=== PATIENT | male | born 1970 | race Two or more races ===

== ENCOUNTER 2023-08-23 08:53 | Inpatient (IN) | payer MEDICAID, OTHER ==
[~2023-08-23] VITALS: Ht 188 cm; Wt 92.8 kg
[2023-08-23] MEDS ORDERED: SODIUM CHLORIDE 0.9% 1,000 ML IV ONE (10:15)
[2023-08-23] MEDS ORDERED: MORPHINE SULFATE 4 MG/ML SYR/VIAL IV ONE (10:15)
[2023-08-23] MEDS ORDERED: methylPREDNISolone SOD SUCC 125 MG/2 ML VL IV ONE (10:15)
[2023-08-23 10:45] LABS: Basophils # (auto) 0 10 ^3/uL (0-0.2); Eosinophils # (auto) 0 10 ^3/uL (0-0.8); Monocytes # (auto) 0.5 10 ^3/uL (0-1.3); White Blood Cell 3.6 10^3/uL (4.4-10.8)
[2023-08-23 10:47] LABS: Basophils % (auto) 0.7 % (0.0-2.0); Eosinophils % (auto) 1.2 % (0.0-7.0); Hematocrit 38.3 % (41.0-53.0); Hemoglobin 12.4 g/dL (13.5-17.5); Lymphocytes % (auto) 28.5 % (10.0-50.0); Mean Corpuscular Hgb Conc. 32.3 g/dL (32.0-36.0); Mean Corpuscular Volume 80.7 fL (80.0-100.0); Monocytes % (auto) 14.3 % (0.0-12.0); Neutrophils % (auto) 55.3 % (37.0-80.0); Nucleated Red Blood Cells % 0.2 %; Red Blood Cells 4.75 10^6/uL (4.5-5.90); Red Cell Distribution Width 17.7 % (11.8-14.3)
[2023-08-23 11:03] LABS: Chloride 104 mmol/L (98-107); Sodium 138 mmol/L (136-145)
[2023-08-23 11:04] LABS: Anion Gap 9 (5-15); Carbon Dioxide 25 mmol/L (20-30)
[2023-08-23 11:09] LABS: BUN/Creatinine Ratio 17.1 (10.0-20.0); Blood Urea Nitrogen 18 mg/dL (9-23); Glucose 89 mg/dL (74-106)
[2023-08-23 12:46] LABS: Lipase 40 U/L (12-53)
[2023-08-23] MEDS ORDERED: ENOXAPARIN SOD 40 MG/0.4 ML SYRINGE SC SCH (13:00)
[2023-08-23] MEDS ORDERED: DOCUSATE SOD 100 MG CAP PO PRN (13:00)
[2023-08-23] MEDS: GABAPENTIN 300 MG CAP PO SCH ×2 (14:06→23:00)
[2023-08-23] MEDS: SODIUM CHLORIDE 0.9% 1,000 ML IV SCH ×2 (14:08→22:54)
[2023-08-23 14:32] LABS: Urine Epithelial Cast None Seen /hpf (<5)
[2023-08-23 15:16] LABS: Urine Bacteria NONE SEEN /hpf (None Seen); Urine Blood Negative /uL (Negative); Urine Clarity Clear (Clear); Urine Color Colorless (Yellow); Urine Protein, UAD Negative (Negative); Urine Specific Gravity 1.008 (1.001-1.035); Urine Urobilinogen Normal (Negative); Urine WBC <1 /hpf (0 - 3)
[2023-08-23 15:30] VITALS: PULSE 96; RESP 18; O2SAT 97
[2023-08-23] MEDS: ALBUTEROL SULF 2.5 MG/0.5ML(0.5%) NEB SOLN NEB PRN (15:30)
[2023-08-23] MEDS: IPRATROPIUM BROM 0.5 MG/2.5ML INH SOL NEB PRN (15:30)
[2023-08-23 15:36] VITALS: PULSE 92; RESP 18; O2SAT 97
[2023-08-23 17:08] VITALS: BP 144/72; PULSE 89; RESP 18; O2SAT 99
[2023-08-23 19:42] VITALS: O2SAT 96
[2023-08-23] MEDS: MORPHINE SULFATE INJ 2 MG/ml SYRG IV PRN (20:10)
[2023-08-23] MEDS: ONDANSETRON HCL 4 MG/2 ML VIAL IV PRN (20:11)
[2023-08-23] MEDS ORDERED: methylPREDNISolone SOD SUCC 125 MG/2 ML VL ONE ×2 (20:46→20:53)
[2023-08-24] VITALS (9 sets, daily range): BP systolic 118–137; BP diastolic 71–79; PULSE 74–80; RESP 16–20; TEMP 97.9–98.1; O2SAT 93–99
[2023-08-24] MEDS: MORPHINE SULFATE INJ 2 MG/ml SYRG IV PRN ×4 (00:27→14:21)
[2023-08-24] MEDS: ONDANSETRON HCL 4 MG/2 ML VIAL IV PRN (00:27)
[2023-08-24] MEDS ORDERED: methylPREDNISolone SOD SUCC 1,000 MG in SODIUM CHLORIDE 0.9% 250 ML IV ONE (00:30)
[2023-08-24] MEDS: ALBUTEROL SULF 2.5 MG/0.5ML(0.5%) NEB SOLN NEB PRN (04:24)
[2023-08-24] MEDS: IPRATROPIUM BROM 0.5 MG/2.5ML INH SOL NEB PRN (04:24)
[2023-08-24] MEDS ORDERED: MELA10CA PO (06:37)
[2023-08-24] MEDS: GABAPENTIN 300 MG CAP PO SCH ×3 (06:44→21:02)
[2023-08-24] MEDS: SODIUM CHLORIDE 0.9% 1,000 ML IV SCH ×3 (06:45→22:20)
[2023-08-24 07:50] LABS: Basophils # (auto) 0 10 ^3/uL (0-0.2); Eosinophils # (auto) 0 10 ^3/uL (0-0.8); Eosinophils % (auto) 0.1 % (0.0-7.0); Hemoglobin 10.5 g/dL (13.5-17.5); Lymphocytes # (auto) 0.5 10 ^3/uL (0.4-5.4); Nucleated Red Blood Cells % 0.1 %
[2023-08-24 07:53] LABS: Basophils % (auto) 0.4 % (0.0-2.0); Hematocrit 32.4 % (41.0-53.0); Lymphocytes % (auto) 18.7 % (10.0-50.0); Mean Corpuscular Hemoglobin 26.2 pg (28.0-32.0); Mean Corpuscular Hgb Conc. 32.4 g/dL (32.0-36.0); Monocytes # (auto) 0.1 10 ^3/uL (0-1.3); Monocytes % (auto) 5.5 % (0.0-12.0); Neutrophils % (auto) 75.3 % (37.0-80.0); Red Cell Distribution Width 17.8 % (11.8-14.3); White Blood Cell 2.6 10^3/uL (4.4-10.8)
[2023-08-24 08:43] LABS: Alanine Aminotransferase 83 U/L (7-40); Albumin 3.4 g/dL (3.2-4.8); Aspartate Aminotransferase 86 U/L (13-40); Total Protein 7.3 g/dL (5.7-8.2)
[2023-08-24 08:44] LABS: Chloride 109 mmol/L (98-107); Potassium 4.2 mmol/L (3.5-5.1); Sodium 138 mmol/L (136-145)
[2023-08-24 08:47] LABS: Anion Gap 10 (5-15); Calcium 8.4 mg/dL (8.7-10.4); Carbon Dioxide 19 mmol/L (20-30)
[2023-08-24 08:52] LABS: BUN/Creatinine Ratio 18.1 (10.0-20.0); Blood Urea Nitrogen 19 mg/dL (9-23); Glucose 156 mg/dL (74-106)
[2023-08-24 08:53] LABS: Alkaline Phosphatase 156 U/L (46-116)
[2023-08-24 08:55] LABS: Bilirubin, Total 0.6 mg/dL (0.2-1.0)
[2023-08-24] MEDS ORDERED: FURO1TAB31 PO (09:43)
[2023-08-24] MEDS ORDERED: GABA-339 PO (09:43)
[2023-08-24] MEDS ORDERED: METH-1182 PO (09:43)
[2023-08-24] MEDS ORDERED: RISP3TAB44 PO (09:43)
[2023-08-24] MEDS: FUROSEMIDE 40 MG TAB PO SCH (09:50)
[2023-08-24] MEDS: PANTOPRAZOLE 40 MG/10 ML VIAL INJ IV SCH (09:50)
[2023-08-24] MEDS: METHOCARBAMOL 500 MG TAB PO PRN (13:06)
[2023-08-24] MEDS: methylPREDNISolone SOD SUCC 1,000 MG in SODIUM CHL 0.9% 250 ML IV SCH (16:19)
[2023-08-24] MEDS: HYDROmorphone HCL 2 MG/ML VL/or syr IV PRN ×2 (16:51→21:04)
[2023-08-24] MEDS: risperiDONE 1 MG TAB PO SCH (21:03)
[2023-08-24] MEDS ORDERED: LORazepam 2MG/ML-1ML VIAL IV PRN (22:45)
[2023-08-25] VITALS (8 sets, daily range): BP systolic 106–119; BP diastolic 60–68; PULSE 63–77; RESP 16–20; TEMP 97.5–98.3; O2SAT 95–98
[2023-08-25] MEDS: HYDROmorphone HCL 2 MG/ML VL/or syr IV PRN ×6 (01:26→20:27)
[2023-08-25] MEDS: GABAPENTIN 300 MG CAP PO SCH ×3 (04:33→21:24)
[2023-08-25] MEDS: SODIUM CHLORIDE 0.9% 1,000 ML IV SCH ×3 (06:40→23:20)
[2023-08-25] MEDS: FUROSEMIDE 40 MG TAB PO SCH (08:41)
[2023-08-25] MEDS: methylPREDNISolone SOD SUCC 1,000 MG in SODIUM CHL 0.9% 250 ML IV SCH (08:41)
[2023-08-25] MEDS: PANTOPRAZOLE 40 MG/10 ML VIAL INJ IV SCH (08:42)
[2023-08-25] MEDS ORDERED: GADOTERATE MEG 10 MMOL/20ml INJ (0.5MMOL/ml) IV ONE (11:24)
[2023-08-25] MEDS: risperiDONE 1 MG TAB PO SCH (21:24)
[2023-08-25] MEDS: MELATONIN 5 MG TAB PO SCH (21:25)
[2023-08-26] VITALS (10 sets, daily range): BP systolic 110–127; BP diastolic 61–78; PULSE 58–76; RESP 16–20; TEMP 97.5–98.8; O2SAT 94–98
[2023-08-26] MEDS: HYDROmorphone HCL 2 MG/ML VL/or syr IV PRN ×6 (02:39→23:43)
[2023-08-26] MEDS: GABAPENTIN 300 MG CAP PO SCH ×3 (06:48→21:43)
[2023-08-26] MEDS: PANTOPRAZOLE 40 MG/10 ML VIAL INJ IV SCH (11:32)
[2023-08-26] MEDS: FUROSEMIDE 40 MG TAB PO SCH (11:33)
[2023-08-26] MEDS: SODIUM CHLORIDE 0.9% 1,000 ML IV SCH ×3 (11:33→23:45)
[2023-08-26] MEDS: methylPREDNISolone SOD SUCC 1,000 MG in SODIUM CHL 0.9% 250 ML IV SCH (11:33)
[2023-08-26] MEDS: risperiDONE 1 MG TAB PO SCH (21:43)
[2023-08-26] MEDS: MELATONIN 5 MG TAB PO SCH (21:43)
[2023-08-27] VITALS (16 sets, daily range): BP systolic 123–158; BP diastolic 70–84; PULSE 61–85; RESP 16–20; TEMP 97–97.8; O2SAT 93–100
[2023-08-27] MEDS: HYDROmorphone HCL 2 MG/ML VL/or syr IV PRN ×6 (02:32→23:48)
[2023-08-27] MEDS: GABAPENTIN 300 MG CAP PO SCH ×3 (05:40→21:46)
[2023-08-27] MEDS: SODIUM CHLORIDE 0.9% 1,000 ML IV SCH ×2 (08:45→17:00)
[2023-08-27] MEDS: PANTOPRAZOLE 40 MG/10 ML VIAL INJ IV SCH (08:45)
[2023-08-27] MEDS: FUROSEMIDE 40 MG TAB PO SCH (08:45)
[2023-08-27] MEDS: methylPREDNISolone SOD SUCC 1,000 MG in SODIUM CHL 0.9% 250 ML IV SCH (09:35)
[2023-08-27] MEDS ORDERED: LORazepam 2MG/ML-1ML VIAL ONE ×3 (11:48→11:54)
[2023-08-27] MEDS ORDERED: LORazepam 2MG/ML-1ML VIAL IV ONE ×2 (12:00)
[2023-08-27] MEDS: risperiDONE 1 MG TAB PO SCH (21:45)
[2023-08-27] MEDS: MELATONIN 5 MG TAB PO SCH (21:46)
[2023-08-27] MEDS: METHOCARBAMOL 500 MG TAB PO PRN (21:51)
[2023-08-28] VITALS (11 sets, daily range): BP systolic 122–138; BP diastolic 66–76; PULSE 74–92; RESP 17–19; TEMP 97.8–98.5; O2SAT 91–99
[2023-08-28] MEDS: HYDROmorphone HCL 2 MG/ML VL/or syr IV PRN ×3 (03:18→11:04)
[2023-08-28] MEDS: SODIUM CHLORIDE 0.9% 1,000 ML IV SCH ×3 (03:26→17:56)
[2023-08-28] MEDS: GABAPENTIN 300 MG CAP PO SCH ×3 (06:07→22:00)
[2023-08-28] MEDS: METHOCARBAMOL 500 MG TAB PO PRN (06:11)
[2023-08-28] MEDS: FUROSEMIDE 40 MG TAB PO SCH (10:41)
[2023-08-28] MEDS: PANTOPRAZOLE 40 MG/10 ML VIAL INJ IV SCH (10:56)
[2023-08-28] MEDS: methylPREDNISolone SOD SUCC 1,000 MG in SODIUM CHL 0.9% 250 ML IV SCH (10:57)
[2023-08-28] MEDS ORDERED: methylPREDNISolone SOD SUCC 1,000 MG in SODIUM CHL 0.9% 250 ML IV ONE (13:00)
[2023-08-28] MEDS ORDERED: ACETAMINOPHEN 325 MG TAB PO PRN ×2 (17:15→17:30)
[2023-08-28] MEDS ORDERED: HYDROcodone-ACET 10/325MG TAB PO PRN (17:30)
[2023-08-28] MEDS: HYDROcodone-ACET 5/325MG TAB PO PRN ×2 (17:35→22:00)
[2023-08-28] MEDS: ACETAMINOPHEN 325 MG TAB PO PRN (17:36)
[2023-08-28] MEDS: risperiDONE 1 MG TAB PO SCH (22:02)
[2023-08-28] MEDS: MELATONIN 5 MG TAB PO SCH (22:02)
[2023-08-29] VITALS (8 sets, daily range): BP systolic 101–131; BP diastolic 62–75; PULSE 61–98; RESP 17–19; TEMP 97.4–98.3; O2SAT 90–96
[2023-08-29] MEDS: SODIUM CHLORIDE 0.9% 1,000 ML IV SCH ×3 (02:20→19:00)
[2023-08-29] MEDS: GABAPENTIN 300 MG CAP PO SCH ×3 (05:37→22:09)
[2023-08-29] MEDS: HYDROcodone-ACET 5/325MG TAB PO PRN ×2 (05:37→12:26)
[2023-08-29] MEDS: PANTOPRAZOLE 40 MG/10 ML VIAL INJ IV SCH (10:41)
[2023-08-29] MEDS: levETIRAcetam 500 MG TAB PO SCH ×2 (10:44→22:10)
[2023-08-29] MEDS: ACETAMINOPHEN 325 MG TAB PO PRN (10:44)
[2023-08-29] MEDS: FUROSEMIDE 40 MG TAB PO SCH (10:51)
[2023-08-29 11:11] LABS: Basophils # (auto) 0 10 ^3/uL (0-0.2); Eosinophils # (auto) 0 10 ^3/uL (0-0.8); Eosinophils % (auto) 0.1 % (0.0-7.0); Hemoglobin 11.4 g/dL (13.5-17.5); Lymphocytes # (auto) 0.7 10 ^3/uL (0.4-5.4); Monocytes # (auto) 0.3 10 ^3/uL (0-1.3); Neutrophils # (auto) 2.4 10 ^3/uL (1.6-8.6); White Blood Cell 3.3 10^3/uL (4.4-10.8)
[2023-08-29 11:13] LABS: Basophils % (auto) 0.4 % (0.0-2.0); Hematocrit 35.1 % (41.0-53.0); Mean Corpuscular Hemoglobin 25.9 pg (28.0-32.0); Mean Corpuscular Hgb Conc. 32.5 g/dL (32.0-36.0); Mean Corpuscular Volume 79.6 fL (80.0-100.0); Monocytes % (auto) 7.6 % (0.0-12.0); Neutrophils % (auto) 71.9 % (37.0-80.0); Nucleated Red Blood Cells % 0.2 %; Red Blood Cells 4.41 10^6/uL (4.5-5.90); Red Cell Distribution Width 17.4 % (11.8-14.3)
[2023-08-29 11:31] LABS: Alanine Aminotransferase 129 U/L (7-40); Albumin 2.9 g/dL (3.2-4.8); Alkaline Phosphatase 133 U/L (46-116); Anion Gap 6 (5-15); Aspartate Aminotransferase 67 U/L (13-40); BUN/Creatinine Ratio 20.9 (10.0-20.0); Blood Urea Nitrogen 18 mg/dL (9-23); Calcium 7.8 mg/dL (8.7-10.4); Carbon Dioxide 26 mmol/L (20-30); Chloride 107 mmol/L (98-107); Glucose 130 mg/dL (74-106); Magnesium 2.1 mg/dL (1.6-2.6); Potassium 3.7 mmol/L (3.5-5.1); Sodium 139 mmol/L (136-145)
[2023-08-29 11:32] LABS: Bilirubin, Total 0.6 mg/dL (0.2-1.0); Total Protein 6.4 g/dL (5.7-8.2)
[2023-08-29] MEDS: LORazepam 2MG/ML-1ML VIAL IV PRN ×2 (13:19→21:08)
[2023-08-29] MEDS: HYDROcodone-ACET 7.5/325MG TAB PO PRN ×2 (18:39→20:16)
[2023-08-29] MEDS: MELATONIN 5 MG TAB PO SCH (22:10)
[2023-08-29] MEDS: risperiDONE 1 MG TAB PO SCH (22:10)
[2023-08-30] MEDS: HYDROcodone-ACET 7.5/325MG TAB PO PRN ×4 (02:10→21:06)
[2023-08-30] MEDS: SODIUM CHLORIDE 0.9% 1,000 ML IV SCH ×3 (03:20→20:00)
[2023-08-30] MEDS: LORazepam 2MG/ML-1ML VIAL IV PRN (04:01)
[2023-08-30] MEDS: GABAPENTIN 300 MG CAP PO SCH ×4 (05:43→21:59)
[2023-08-30 08:00] VITALS: BP 122/75; PULSE 94; PULSE 95; RESP 17; TEMP 97.4; O2SAT 94
[2023-08-30 09:00] VITALS: BP 122/75; PULSE 106; RESP 18; TEMP 98; O2SAT 94
[2023-08-30] MEDS: levETIRAcetam 500 MG TAB PO SCH ×2 (09:03→21:59)
[2023-08-30] MEDS: PANTOPRAZOLE 40 MG/10 ML VIAL INJ IV SCH (09:03)
[2023-08-30] MEDS: FUROSEMIDE 40 MG TAB PO SCH (09:04)
[2023-08-30 10:00] VITALS: O2SAT 94
[2023-08-30 16:50] VITALS: BP 131/75; PULSE 94; RESP 17; TEMP 97.4; O2SAT 94
[2023-08-30 17:00] VITALS: BP 135/82; PULSE 97; RESP 20; O2SAT 98
[2023-08-30 20:00] VITALS: PULSE 96; PULSE 99; RESP 17; O2SAT 94
[2023-08-30] MEDS: risperiDONE 1 MG TAB PO SCH (21:58)
[2023-08-30] MEDS: MELATONIN 5 MG TAB PO SCH (21:59)
[2023-08-31] VITALS (10 sets, daily range): BP systolic 103–116; BP diastolic 56–79; PULSE 82–100; RESP 16–20; TEMP 92.8–98.4; O2SAT 90–99
[2023-08-31] MEDS: HYDROcodone-ACET 7.5/325MG TAB PO PRN ×2 (03:06→09:15)
[2023-08-31] MEDS: SODIUM CHLORIDE 0.9% 1,000 ML IV SCH (04:20)
[2023-08-31] MEDS: GABAPENTIN 300 MG CAP PO SCH ×3 (05:34→21:56)
[2023-08-31] MEDS: PANTOPRAZOLE 40 MG/10 ML VIAL INJ IV SCH (09:15)
[2023-08-31] MEDS: FUROSEMIDE 40 MG TAB PO SCH (09:15)
[2023-08-31] MEDS: levETIRAcetam 500 MG TAB PO SCH ×2 (09:15→21:56)
[2023-08-31] MEDS ORDERED: ALBUTEROL SULF 2.5 MG/0.5ML(0.5%) NEB SOLN NEB PRN (11:30)
[2023-08-31] MEDS: HYDROcodone-ACET 10/325MG TAB PO PRN ×4 (12:16→22:33)
[2023-08-31] MEDS: MELATONIN 5 MG TAB PO SCH (21:56)
[2023-08-31] MEDS: risperiDONE 1 MG TAB PO SCH (21:57)
[2023-08-31] MEDS: LORazepam 0.5 MG TAB PO PRN (23:11)
[2023-09-01] VITALS (8 sets, daily range): BP systolic 103–131; BP diastolic 59–67; PULSE 73–92; RESP 16–19; TEMP 98–98.2; O2SAT 93–98
[2023-09-01] MEDS: HYDROcodone-ACET 10/325MG TAB PO PRN ×3 (04:25→13:37)
[2023-09-01] MEDS: GABAPENTIN 300 MG CAP PO SCH ×2 (05:38→13:36)
[2023-09-01] MEDS: PANTOPRAZOLE 40 MG/10 ML VIAL INJ IV SCH (08:56)
[2023-09-01] MEDS: levETIRAcetam 500 MG TAB PO SCH (08:58)
[2023-09-01] MEDS: FUROSEMIDE 40 MG TAB PO SCH (08:59)
[2023-09-01] MEDS: LORazepam 0.5 MG TAB PO PRN (10:26)
[2023-09-01] MEDS: LORazepam 2MG/ML-1ML VIAL IV PRN (10:28)
== END 2023-09-01 16:41 | disposition hospice, home (50) | DRG 43 ==
LOC: EDBD 08:53 → ER 08:53 → OVERFLOW 13:21 → WEST WING 08-24 06:01 → TELE-WESTW 08-28 09:25
PROVIDERS: ADMIT Nurse Practitioner Family; ATTEND Internal Medicine Geriatric Medicine
DX: G35 Multiple sclerosis (principal); D61.818 Other pancytopenia; E44.1 Mild protein-calorie malnutrition; R45.851 Suicidal ideations; K74.60 Unspecified cirrhosis of liver; R04.2 Hemoptysis; R56.9 Unspecified convulsions; M54.16 Radiculopathy, lumbar region; J45.909 Unspecified asthma, uncomplicated; R16.1 Splenomegaly, not elsewhere classified; G89.29 Other chronic pain; M47.812 Spondylosis without myelopathy or radiculopathy, cervical region; F31.9 Bipolar disorder, unspecified; F41.9 Anxiety disorder, unspecified; Z82.5 Family history of asthma and other chronic lower respiratory diseases; Z85.118 Personal history of other malignant neoplasm of bronchus and lung; Z92.21 Personal history of antineoplastic chemotherapy; Z83.3 Family history of diabetes mellitus; Z98.1 Arthrodesis status; Z68.27 Body mass index [BMI] 27.0-27.9, adult
CPT/HCPCS: 36415; 70450; 70542; 70553; 71045; 72142; 74176; 80048; 80053; 81001; 82962; 83690; 83735; 85025; 94640; 95819; 96365; 96375; 97110; 97116; 97163; 97530; C9113; G0378; J2405